=== PATIENT | male | born 1955 | race Caucasian/White ===

== ENCOUNTER → 2024-10-19 11:48 | Outpatient (REF) | payer MEDICARE, OTHER, SELFPAY | LOC: HWRAD 11:48 | PROVIDERS: ATTENDING PHYSICIAN Family Medicine | DX: M79.672 Pain in left foot (principal) | CPT/HCPCS: 73630 ==

== ENCOUNTER 2025-01-28 07:35 | Emergency (ER) | payer MEDICARE, OTHER, SELFPAY ==
[2025-01-28 07:40] VITALS: BP 168/92
[2025-01-28 08:13] VITALS: BP 183/105
[2025-01-28 08:18] VITALS: BP 156/77; BP 161/85; BP 173/85; PULSE 48; PULSE 55; PULSE 56
[2025-01-28 08:19] VITALS: BMI 23.8
[2025-01-28 08:38] LABS: % Basophils 0.8 % (0-2); % Eosinophils 1.5 % (0-6); % Immature Granulocytes 0.2 % (0-0.5); % Lymphocytes 19.4 % (20.5-51.1); % Monocytes 10.3 % (1.7-9.3); % Neutrophils 67.8 % (42.2-75.2); Absolute Basophils 0.1 10^3/uL (0-0.2); Absolute Eosinophils 0.1 10^3/uL (0-0.7); Absolute Lymphocytes 1.2 10^3/uL (1.2-3.4); Absolute Monocytes 0.6 10^3/uL (0.1-0.6); Absolute Neutrophils 4.2 10^3/uL (1.4-6.5); Hematocrit 36.9 % (39.0-52.0); Hemoglobin 12.9 g/dL (13.0-18.0); Mean Corpuscular Hgb 31.2 pg (27.0-31.0); Mean Corpuscular Volume 89.3 fL (80.0-94.0); Mean Platelet Volume 8.8 fL (7.4-10.4); Nucleated Red Blood Cells % 0 % (-); Platelet Count 248 10^3/uL (130-400); Red Blood Cell Count 4.13 10^6/uL (4.70-6.10); Red Cell Dist. Width 13.4 % (11.5-14.5); White Blood Cell Count 6.2 10^3/uL (4.8-10.8)
[2025-01-28 09:12] LABS: ALT (SGPT) 31 U/L (0-50); AST (SGOT) 44 U/L (17-59); Albumin 4.3 g/dl (3.5-5.0); Alkaline Phosphatase 50 U/L (38-126); Blood Urea Nitrogen 16 mg/dl (9-20); Calcium 9.4 mg/dl (8.4-10.2); Carbon Dioxide 21 mmol/L (22-30); Chloride 109 mmol/L (98-107); Estimated Creatinine Clearance 98 ml/min; Glucose 102 mg/dl (70-99); Magnesium 1.9 mg/dl (1.6-2.3); Potassium 4.2 mmol/L (3.5-5.1); Sodium 138 mmol/L (135-145); Total Bilirubin 0.9 mg/dl (0.2-1.3); eGFR > 60.00
[2025-01-28 09:15] LABS: Troponin I < 0.012 ng/ml
--- NOTE | 2025-01-28 09:36 | ED.GENMED ---
History of Present Illness
General
Chief Complaint: Dizziness
Time Seen by Provider: 01/28/25 07:59
History of Present Illness
History of Present Illness:
69-year-old male with history of hypertension, A-fib on Eliquis and metoprolol status post ablation 4 years ago, hyperlipidemia presenting to the emergency department for dizziness. Patient reports symptoms started this morning. Feels more dizzy
upon standing. Denies any visual changes. Denies any worsening with head movements. 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 He did not take his medications this morning because of his
symptoms. Denies focal weakness or sensory deficits to his extremities. Denies chest pain or difficulty breathing. Denies fever or recent illness. Does note that several weeks ago he had a near syncopal episode, and in discussion with
cardiology, is going to get a Holter monitor. Denies additional acute medical complaints
Past History
Past History
ED Past Medical History: Arrthythmia (A. fib), HTN and Hypercholesterolemia
ED Past Surgical History: Orthopedic
Social History
Tobacco: Non-smoker
Alcohol: Other (He states he drinks 3 beers per day)
Living: with family
Family History
Family History: Other (Family history is positive for hypertension, dementia, end-stage renal disease, [place])
Phy Exam
Physical Exam
Physical Exam:
General: Well-appearing, no clinical signs of dehydration, nontoxic and in no acute distress
HEENT: protecting airway, pupils equal and reactive, extraocular movements intact
Neck: appears supple
CV: Normal heart rate, regular rhythm
Resp: No accessory muscle use, no increased work of breathing, lungs clear to auscultation bilaterally
Abd: Soft and non-distended, no tenderness to palpation
Extremities: No deformities, no swelling, no erythema
Neuro: alert, no focal neurologic deficit
: deferred
Rectal: deferred
Psych: Normal affect
Skin: Intact
Course
Orders/Labs/Results
Orders:
Orders
01/28/25 07:39
Electrocardiogram (*1) Urgent
Reason for Study: Vertigo / Dizzy
EKG- Treatment ONCE
01/28/25 08:18
Orthostatic VS- Treatment ONCE
0.9% Sodium Chloride 1000 ml [Nss] 1,000 ml IV BOLUS
01/28/25 08:19
CT Head W/o Iv Contrast Urgent
Comment:
Reason For Exam: dizzy, htn
01/28/25 08:22
Complete Blood Count/With Diff Urgent
Comprehensive Metabolic Panel Urgent
Magnesium Urgent
Troponin I Urgent
01/28/25 10:32
Felodipine Extended Release [Plendil Extended Release] 10 mg PO NOW STA
Abnormal Lab Results
01/28/25
08:22
RBC 4.13 L 10^6/uL
(4.70-6.10)
Hgb 12.9 L g/dL
(13.0-18.0)
Hct 36.9 L %
(39.0-52.0)
MCH 31.2 H pg
(27.0-31.0)
Lymphocytes % 19.4 L %
(20.5-51.1)
Monocytes % 10.3 H %
(1.7-9.3)
Chloride 109 H mmol/L
(98-107)
Carbon Dioxide 21 L mmol/L
(22-30)
Glucose 102 H mg/dl
(70-99)
01/28/25 08:22
01/28/25 08:22
Vital Signs
Initial and Last Documented VS:
Initial Vital Signs
Temp Pulse Resp BP Pulse Ox
97.7 F 95 16 168/92 98
01/28/25 07:40 01/28/25 07:40 01/28/25 07:40 01/28/25 07:40 01/28/25 07:40
Last Documented Vital Signs
Temp Pulse Resp BP Pulse Ox
97.7 F 57 15 152/77 98
01/28/25 07:40 01/28/25 10:57 01/28/25 08:15 01/28/25 10:57 01/28/25 08:15
MDM/Problems Addressed
MDM/Problems Addressed:
69-year-old male with history of A-fib, hypertension, hyperlipidemia presenting for dizziness which started this morning. Vital signs on arrival significant for hypertension.
On exam patient is resting comfortably, no acute distress or discomfort. Notes that he feels more dizzy upon standing. Orthostatic hypotension is a consideration. Patient is bradycardic, however appears to have relatively and change EKG from
prior. Patient is also on a beta-diya, likely contributing to the bradycardia. No sign of heart block. No nystagmus on exam, no worsening with head movements, lower suspicion for vertiginous quality to symptoms. No focal neurologic symptoms
with lower suspicion for central neurologic process. Blood pressure is markedly elevated, notes that his pressure was normal a few days ago. However, did not take his medications today which could also be contributing to symptoms. Will obtain
laboratory analysis, CT brain imaging, orthostatics and reassess. 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
11:20 - Patient's labs are unremarkable. CT brain without acute intracranial abnormality. Orthostatics without significant change. Blood pressure remains elevated. Did discuss with cardiology on-call, advises giving his blood pressure medication
today and monitoring his blood pressures in the next 2 weeks with an at home cuff with subsequent follow-up. On reassessment, patient notes that he still feels some dizziness upon standing, however remains hemodynamically stable. At this time feel
that he is stable for discharge with continued outpatient management of his blood pressure. Return precautions discussed
*EKG
Interpreted by ED Provider?: Yes
EKG Intrepretation Date: 01/28/25
EKG Intrepretation Time: 10:09
Interpretation: normal
Comparison EKG: no changes (03/15/25)
Heart Rate: 55
Rate: bradycardiac
Rhythm: sinus
[place]: left axis deviation
Interval: normal interval
QRS Pattern: left vent hypertrophy
Ischemia: no ischemia
*Critical Care Note
Total Time (30-74mins, 75-104mins- exclusive of procedures): Not Applicable
ED Attending Note
-
Portions of this chart may have been created with voice recognition software.� Occasional wrong word or��sound alike� substitutions may have occurred due to the inherent limitations of voice recognition software.
Discharge Plan
Departure
Prescriptions:
No Action
apixaban [Eliquis] 5 MG tablet
5 mg PO BID Qty: 40 0RF
metoprolol tartrate 25 MG tablet
25 mg PO BID 30 Days Qty: 60 3RF
pantoprazole [Protonix] 20 MG tablet,delayed release (DR/EC)
20 mg PO DAILY Qty: 14 0RF
felodipine 5 MG tablet extended release 24 hr
5 mg PO DAILY Qty: 30 3RF
Referrals:
Luís Pelaez MD [Family Provider, Family Practice]
Interventions
Interventions:
*Risk Screen - Suicide Last Done: 01/28/25 07:40
*General Assessment Last Done: 01/28/25 08:18
*Neglect/Abuse Screening Last Done: 01/28/25 07:40
*ED- Fall Risk Assessment Last Done: 01/28/25 08:18
*ED COVID-19 Vaccine History Last Done: 01/28/25 08:18
Discharge Date and Time
Print Language: GREEK
[2025-01-28] MEDS: PLENDIL EXTENDED RELEASE 10 MG PO (10:57)
[2025-01-28] MEDS: NSS 1000 IV (10:57)
[2025-01-28 12:00] VITALS: BP 152/80
== END 2025-01-28 12:30 | disposition home or self-care (01) ==
LOC: EMR 07:35
PROVIDERS: EMERGENCY PHYSICIAN Student in an Organized Health Care Education/Training Program; FAMILY PHYSICIAN Family Medicine
DX: R42 Dizziness and giddiness (principal); I10 Essential (primary) hypertension; I48.91 Unspecified atrial fibrillation; E78.00 Pure hypercholesterolemia, unspecified; Z79.01 Long term (current) use of anticoagulants; Z82.49 Family history of ischemic heart disease and other diseases of the circulatory system
CPT/HCPCS: 99284; 70450; 80053; 83735; 84484; 85025; 93005

== ENCOUNTER → 2025-03-21 15:01 | Outpatient (REF) | payer MEDICARE, OTHER, SELFPAY | LOC: RCS 15:01 | PROVIDERS: ATTENDING PHYSICIAN Internal Medicine Cardiovascular Disease; FAMILY PHYSICIAN Family Medicine | DX: I47.29 Other ventricular tachycardia (principal); I48.91 Unspecified atrial fibrillation; R42 Dizziness and giddiness | CPT/HCPCS: 93306 ==

== ENCOUNTER → 2025-03-30 12:08 | Outpatient (REF) | payer MEDICARE, OTHER, SELFPAY | LOC: HWRCS 12:08 | PROVIDERS: ATTENDING PHYSICIAN Internal Medicine Cardiovascular Disease; FAMILY PHYSICIAN Family Medicine | DX: I47.29 Other ventricular tachycardia (principal); I48.91 Unspecified atrial fibrillation; R42 Dizziness and giddiness; I48.0 Paroxysmal atrial fibrillation | CPT/HCPCS: 78452; 93017; A9500 ==